=== PATIENT | male | born 2000 | race Two or more races ===

== ENCOUNTER 2020-07-16 09:41 | Emergency (ER) | payer OTHER ==
[2020-07-16 09:53] VITALS: BP 135/88; PULSE 58; TEMP 98; BMI 22.3
[2020-07-16] MEDS ORDERED: IBUPROFEN 400 MG TABLET (FP) PO ONE ×2 (10:24→10:29)
[2020-07-16] MEDS ORDERED: DIPHTH,PERTUSS(ACELL),TET 0.5 ML DISP.SYRIN IM ONE (10:29)
== END 2020-07-16 12:25 | disposition home or self-care (01) ==
LOC: JERFT 09:41 → JER 09:41 → JERFT 12:25
PROC: 0HQFXZZ Repair Right Hand Skin, External Approach (ICD-10-PCS; principal; 2020-07-16)
PROC: 3E0234Z Introduction of Serum, Toxoid and Vaccine into Muscle, Percutaneous Approach (ICD-10-PCS; 2020-07-16)
DX: S62.630B Displaced fracture of distal phalanx of right index finger, initial encounter for open fracture (principal); S60.10XA Contusion of unspecified finger with damage to nail, initial encounter; S61.314A Laceration without foreign body of right ring finger with damage to nail, initial encounter
CPT/HCPCS: 73110-TC-RT-FY; 73130-TC-RT-FY; 90715; 99284-25

== ENCOUNTER 2020-07-27 10:59 | Emergency (ER) | payer OTHER ==
[2020-07-27 11:07] VITALS: BP 119/66; PULSE 60; BMI 22.3
== END 2020-07-27 11:50 | disposition home or self-care (01) ==
LOC: JERFT 10:59
DX: Z48.02 Encounter for removal of sutures (principal)
CPT/HCPCS: 99281-25

== ENCOUNTER 2022-01-20 23:11 | Emergency (ER) | payer OTHER ==
[2022-01-21] MEDS ORDERED: DIPHTH,PERTUSS(ACELL),TET 0.5 ML DISP.SYRIN IM ONE ×2 (00:15)
== END 2022-01-21 00:21 | disposition home or self-care (01) ==
LOC: FER 23:11
PROC: 3E0234Z Introduction of Serum, Toxoid and Vaccine into Muscle, Percutaneous Approach (ICD-10-PCS; principal; 2022-01-21)
DX: T23.352A Burn of third degree of left palm, initial encounter (principal)
CPT/HCPCS: 90471; 90715; 99283-25

== ENCOUNTER 2023-09-22 00:13 | Emergency (ER) | payer OTHER ==
[2023-09-22 00:18] VITALS: BP 120/68; PULSE 94; RESP 20; TEMP 98.3; BMI 20.9
[2023-09-22] MEDS: ACETAMINOPHEN 500 MG TABLET (FP) PO ONE (01:42)
[2023-09-22] MEDS ORDERED: ACETAMINOPHEN 325 MG TABLET (FP) ONE (01:43)
== END 2023-09-22 02:47 | disposition home or self-care (01) ==
LOC: JER 00:13
DX: R07.81 Pleurodynia (principal); S20.211A Contusion of right front wall of thorax, initial encounter; Y04.0XXA Assault by unarmed brawl or fight, initial encounter; Y92.410 Unspecified street and highway as the place of occurrence of the external cause; Z20.822 Contact with and (suspected) exposure to COVID-19
CPT/HCPCS: 0241U-QW; 71046-TC-FY; 99284-25